=== PATIENT | male | born 1985 | race Caucasian/White ===

== ENCOUNTER → 2016-02-18 | Outpatient (CLI) | payer OTHER ==
--- NOTE | 2016-02-18 07:19 | RAD ---
EXAM: Abdomen sonogram. HISTORY: Abnormal liver function laboratory values. TECHNIQUE: Sonographic imaging of the abdomen was performed. COMPARISON: None. FINDINGS: The liver is mildly enlarged. No focal hepatic lesion is seen. The gallbladder is unremarkable. The common bile duct is normal in caliber, measuring 4 mm. The kidneys are normal in size. There is no hydronephrosis. The pancreas is unremarkable. The inferior vena cava and aorta are unremarkable. The spleen is enlarged, measuring 16.1 cm IMPRESSION: 1. Mild hepatosplenomegaly. 2. Otherwise, unremarkable abdomen sonogram.
== END | disposition home or self-care (01) ==
LOC: US 06:19
PROVIDERS: ATTEND Nurse Practitioner
DX: R94.5 Abnormal results of liver function studies (principal); R16.2 Hepatomegaly with splenomegaly, not elsewhere classified
CPT/HCPCS: 76700